=== PATIENT | male | born 2000 | race Caucasian/White ===

== ENCOUNTER 2018-10-17 11:04 | Emergency (ER) | payer OTHER ==
[~2018-10-17] VITALS: Ht 185.4 cm; Wt 99.8 kg
[~2018-10-17 11:04] MED LIST: CATAPRES-TTS 10.1 MG; CHLORPROMAZINE100 MG PO; CHLORPROMAZINE25 M1 PO; HYDROXYZINE HCL25 M1 PO; IBUPROFEN 400400 M1 PO; INTUNIV1 MG PO; KAPVAY0.1 MG PO; LITHIUM CARBON150 MG PO; LITHIUM CARBON600 MG PO; NAPROSYN375 MG PO; RISPERDAL 1 MG T1 MG PO; RISPERDAL M-TAB2 MG PO; RISPERDAL2 MG; SLEEPING MED; TEGRETOL XR100 MG PO
[2018-10-17] MEDS ORDERED: NAPROSYN500 MG PO (12:23)
[2018-10-17 12:47] VITALS: BP 129/70
== END 2018-10-17 12:48 | disposition home or self-care (01) ==
LOC: M.ERS 11:04
DX: S63.8X1A Sprain of other part of right wrist and hand, initial encounter (principal); F31.9 Bipolar disorder, unspecified; F90.9 Attention-deficit hyperactivity disorder, unspecified type; W22.8XXA Striking against or struck by other objects, initial encounter; Y93.89 Activity, other specified; Y92.89 Other specified places as the place of occurrence of the external cause; Y99.8 Other external cause status

== ENCOUNTER 2018-10-27 17:58 | Emergency (ER) | payer OTHER ==
[~2018-10-27] VITALS: Ht 190.5 cm; Wt 104.3 kg
[~2018-10-27 17:58] MED LIST changes: +NAPROSYN500 MG PO
[2018-10-27 18:06] VITALS: BP 118/73
[2018-10-27 18:28] LABS: URINE BILIRUBIN NEGATIVE (Negative); URINE BLOOD NEGATIVE (Negative); URINE CLARITY CLEAR; URINE COLOR YELLOW; URINE GLUCOSE-RANDOM NEGATIVE (Negative); URINE KETONES NEGATIVE (Negative); URINE LEUKOCYTES-REFLEX NEGATIVE (Negative); URINE NITRITE-REFLEX NEGATIVE (Negative); URINE PROTEIN NEGATIVE (Negative); URINE UROBILINOGEN 0.2 E.U./dl (0.2-1.0)
[2018-10-27] MEDS ORDERED: IBUPROFEN 800800 MG PO (18:34)
== END 2018-10-27 18:47 | disposition home or self-care (01) ==
LOC: M.ERS 17:58
PROVIDERS: Emergency Medicine
DX: N50.812 Left testicular pain (principal); N50.811 Right testicular pain; G89.29 Other chronic pain; F90.9 Attention-deficit hyperactivity disorder, unspecified type; F31.9 Bipolar disorder, unspecified

== ENCOUNTER 2019-04-02 07:56 | Emergency (ER) | payer OTHER ==
[~2019-04-02] VITALS: Ht 190.5 cm; Wt 108.9 kg
[~2019-04-02 07:56] MED LIST changes: +IBUPROFEN 800800 MG PO
[2019-04-02 09:24] LABS: URINE BILIRUBIN NEGATIVE (Negative); URINE BLOOD NEGATIVE (Negative); URINE CLARITY CLEAR; URINE COLOR YELLOW; URINE GLUCOSE-RANDOM NEGATIVE (Negative); URINE KETONES NEGATIVE (Negative); URINE LEUKOCYTES NEGATIVE (Negative); URINE NITRITE NEGATIVE (Negative); URINE PROTEIN NEGATIVE (Negative); URINE SPECIFIC GRAVITY >= 1.030 (1.005-1.030); URINE UROBILINOGEN 0.2 E.U./dl (0.2-1.0)
[2019-04-02 09:32] LABS: AMP/METHAMP Negative (Negative); BARBITURATES Negative (Negative); BENZODIAZEPINES Negative (Negative); COCAINE Negative (Negative); METHADONE Negative (Negative); OPIATES Negative (Negative); PCP Negative (Negative); THC Negative (Negative)
[2019-04-02 09:35] VITALS: BP 135/88
== END 2019-04-02 09:37 | disposition home or self-care (01) ==
LOC: M.ERS 07:56
PROVIDERS: Personal Emergency Response Attendant
DX: S06.0X1A Concussion with loss of consciousness of 30 minutes or less, initial encounter (principal); S13.4XXA Sprain of ligaments of cervical spine, initial encounter; F31.9 Bipolar disorder, unspecified; Y92.480 Sidewalk as the place of occurrence of the external cause; Y93.01 Activity, walking, marching and hiking; Y99.8 Other external cause status

== ENCOUNTER 2019-07-25 23:51 | Emergency (ER) | payer OTHER ==
[~2019-07-25] VITALS: Ht 188 cm; Wt 108.9 kg
[2019-07-26 00:26] LABS: ABSOLUTE BASOPHILS 0.1 thou/uL (0.0-0.2); ABSOLUTE EOSINOPHILS 0.1 thou/uL (0.0-0.7); ABSOLUTE LYMPHOCYTES 2.3 thou/uL (0.8-5.3); ABSOLUTE MONOCYTES 0.7 thou/uL (0.0-1.2); ABSOLUTE NEUTROPHILS 3.6 thou/uL (1.6-8.1); BASOPHILS 0.8 %; HEMOGLOBIN 13.9 gm/dL (14.0-18.0); LYMPHOCYTES 33.8 %; MCHC 33.9 g/dL (28.0-37.0); MCV 82.7 fL (80.0-100.0); MONOCYTES 9.9 %; MPV 8.1 fl. (7.2-11.1); NUCLEATED RBCS 0 /100WBC; PLATELET COUNT* 201 thou/uL (150-400); POLYS 53.5 %; RBC 4.95 mil/uL (4.50-6.00); RDW-CV 14.1 % (10.5-14.5); WBC 6.8 thou/uL (4.0-11.0)
[2019-07-26 00:33] LABS: CALCIUM 8.9 mg/dL (8.5-10.1); CREATININE 1.2 mg/dL (0.6-1.3); POTASSIUM 3.9 mmol/L (3.5-5.1)
[2019-07-26 00:37] LABS: ALBUMIN 4.1 g/dL (3.4-5.0); TOTAL BILIRUBIN 1.4 mg/dL (<0.1-1.0); TOTAL PROTEIN 7.2 g/dL (6.4-8.2)
[2019-07-26 00:44] LABS: URINE BILIRUBIN NEGATIVE (Negative); URINE BLOOD NEGATIVE (Negative); URINE CLARITY CLEAR; URINE COLOR YELLOW; URINE GLUCOSE-RANDOM NEGATIVE (Negative); URINE KETONES NEGATIVE (Negative); URINE LEUKOCYTES-REFLEX TRACE (Negative); URINE NITRITE-REFLEX NEGATIVE (Negative); URINE PROTEIN NEGATIVE (Negative); URINE SPECIFIC GRAVITY 1.025 (1.005-1.030); URINE UROBILINOGEN 0.2 E.U./dl (0.2-1.0)
[2019-07-26 00:51] LABS: CASTS None Seen /LPF (None Seen); CRYSTALS None Seen /LPF (None Seen); MUCUS 0-3 Light strn/LPF (None Seen); SQUAMOUS 0-3 Few /LPF (0-3); URINE RBC 0-2 Rare /HPF (0-2); URINE WBC-REFLEX 6-15 Few /HPF (0-5)
[2019-07-26 00:52] LABS: AMP/METHAMP Negative (Negative); BARBITURATES Negative (Negative); BENZODIAZEPINES Negative (Negative); COCAINE Negative (Negative); METHADONE Negative (Negative); OPIATES Negative (Negative); PCP Negative (Negative); THC Negative (Negative)
[2019-07-26 01:25] VITALS: BP 129/75
--- NOTE | 2019-07-26 16:01 | EKG ---
[place] [address] ELECTROCARDIOGRAM REPORT Name: CORDELIA MCCLENDON Room: [facility]#: [id number] Admission: 07/25/19 Attend Phys: Discharge: Date of : 89 Date of Service: 07/26/19 0009 Report #: [id number] THIS REPORT FOR: //name// [facility] ED Test Date: 2019-07-26 Test Time: 00:09:50 Pat Name: CORDELIA DANELLE Department: Room: Gender: Sc[employer]ger: : 2000 Requested By: Soha Zapata Order Number: [id number] MD: Yash Renteria Measurements Intervals [place] Rate: 49 P: -19 UT: 186 QRS: 45 QRSD: 109 T: 16 QT: 484 QTc: 437 Interpretive Statements Sinus bradycardia Atrial premature complexes in couplets ST elev, probable normal early repol pattern, consider ischemia No previous ECG available for comparison Electronically Signed On 07-26-2019 16:00:09 CDT by Yash Renteria [email or web address] <ELECTRONICALLY SIGNED> By: Yash Renteria MD, [facility] 07/26/191599 Yash Renteria MD, FAC /EPI
== END 2019-07-26 01:07 | disposition home or self-care (01) ==
LOC: M.ERS 23:51
PROVIDERS: Personal Emergency Response Attendant
DX: R07.89 Other chest pain (principal); R42 Dizziness and giddiness; F12.10 Cannabis abuse, uncomplicated; F90.9 Attention-deficit hyperactivity disorder, unspecified type; F31.9 Bipolar disorder, unspecified; Z71.1 Person with feared health complaint in whom no diagnosis is made

== ENCOUNTER 2019-08-03 00:34 | Emergency (ER) | payer OTHER ==
[~2019-08-03] VITALS: Ht 188 cm; Wt 113.4 kg
[2019-08-03 00:38] VITALS: BP 128/78
[2019-08-03 01:09] LABS: URINE BILIRUBIN NEGATIVE (Negative); URINE BLOOD NEGATIVE (Negative); URINE CLARITY CLEAR; URINE COLOR YELLOW; URINE GLUCOSE-RANDOM NEGATIVE (Negative); URINE KETONES NEGATIVE (Negative); URINE LEUKOCYTES-REFLEX NEGATIVE (Negative); URINE NITRITE-REFLEX NEGATIVE (Negative); URINE PROTEIN 1+ (Negative); URINE SPECIFIC GRAVITY >= 1.030 (1.005-1.030); URINE UROBILINOGEN 0.2 E.U./dl (0.2-1.0)
[2019-08-03 01:17] LABS: AMP/METHAMP Negative (Negative); BARBITURATES Negative (Negative); BENZODIAZEPINES Negative (Negative); COCAINE Negative (Negative); METHADONE Negative (Negative); OPIATES Negative (Negative); PCP Negative (Negative); THC POSITIVE (Negative)
== END 2019-08-03 01:41 | disposition home or self-care (01) ==
LOC: M.ERS 00:34
PROVIDERS: Personal Emergency Response Attendant
DX: F10.20 Alcohol dependence, uncomplicated (principal); F31.9 Bipolar disorder, unspecified; F90.9 Attention-deficit hyperactivity disorder, unspecified type; Y90.1 Blood alcohol level of 20-39 mg/100 ml

== ENCOUNTER 2020-02-15 04:05 | Emergency (ER) | payer OTHER ==
[~2020-02-15] VITALS: Ht 188 cm; Wt 96.6 kg
[2020-02-15 06:57] VITALS: BP 121/48
== END 2020-02-15 06:59 | disposition home or self-care (01) ==
LOC: M.ERS 04:05
DX: T40.5X1A Poisoning by cocaine, accidental (unintentional), initial encounter (principal); R00.2 Palpitations; R07.89 Other chest pain; F90.9 Attention-deficit hyperactivity disorder, unspecified type; F31.9 Bipolar disorder, unspecified; F41.9 Anxiety disorder, unspecified; Y92.89 Other specified places as the place of occurrence of the external cause